=== PATIENT | female | born 1995 | race African-American/Black ===

== ENCOUNTER 2025-08-27 03:57 | Emergency (ER) | payer SELFPAY ==
[~2025-08-27] VITALS: Ht 162.6 cm; Wt 59.3 kg
[2025-08-27 04:11] VITALS: O2SAT 99
[2025-08-27 04:36] VITALS: TEMP 36.7
[2025-08-27] MEDS: ONDANSETRON 4MG ODT PO ONE (04:52)
[2025-08-27] MEDS: FAMOTIDINE 20MG TABLET PO ONE (04:52)
[2025-08-27] MEDS: MAGNESIUM/ALUMINUM HYDROXIDE/SIMETHICONE 30ML UDC PO ONE (04:52)
[2025-08-27] MEDS: DICYCLOMINE HCL 10MG/ML 2ML VIAL IM ONE (05:02)
[2025-08-27 05:22] LABS: BASOPHILS % 0.2 % (0.0-2.0); EOSINOPHILS % 0.0 % (0.0-5.0); HEMATOCRIT. 37.8 % (36.0-48.0); HEMOGLOBIN. 12.4 g/dL (12.0-16.0); LYMPHOCYTES % 12.6 % (20.0-50.0); MEAN PLATELET VOLUME 8.6 fl (7.4-10.4); MONOCYTES % 2.5 % (2.0-8.0); NEUTROPHILS % 84.7 % (40.0-76.0); PLATELET 236 x1000/uL (130-400); RED BLOOD CELL COUNT 4.01 mill/uL (4.2-5.4); RED CELL DISTRIBUTION WIDTH 14.0 % (11.6-14.6)
[2025-08-27 05:35] LABS: CREATININE 0.8 mg/dL (0.6-1.0); UREA NITROGEN BLOOD 6 mg/dL (9-23)
[2025-08-27 05:36] LABS: ETHANOL BLOOD < 10 mg/dL (<10); PROTEIN TOTAL 8.5 g/dL (6.0-8.3)
[2025-08-27 05:37] LABS: ASPARTATE AMINOTRANSFERASE 182 IU/L (<34); BILIRUBIN DIRECT 0.3 mg/dL (<=3.0)
[2025-08-27 05:38] LABS: BILIRUBIN TOTAL 0.9 mg/dL (0.1-1.0)
[2025-08-27 05:56] VITALS: BP 103/62; PULSE 68; RESP 17; O2SAT 99
[2025-08-27 06:11] LABS: HCG SCREEN NEGATIVE
[2025-08-27] MEDS ORDERED: MAG-55 MT (06:15)
[2025-08-27] MEDS ORDERED: ONDA-239 PO (06:15)
[2025-08-27] MEDS ORDERED: FAMO-135 MT (06:15)
== END 2025-08-27 06:34 | disposition home or self-care (01) ==
LOC: ER 03:57
DX: K80.60 Calculus of gallbladder and bile duct with cholecystitis, unspecified, without obstruction (principal); R11.2 Nausea with vomiting, unspecified; K21.9 Gastro-esophageal reflux disease without esophagitis
CPT/HCPCS: 80076; 80048; 80320; 84703; 83690; 85025; 36415; 76705; 96372; 99285; Q0162; J0500; G0480